=== PATIENT | female | born 1975 | race Caucasian/White ===

== ENCOUNTER → 2019-02-12 | Outpatient (CLI) | payer OTHER | END | disposition home or self-care (01) | LOC: RAD 17:13 | PROVIDERS: ATTEND Physician Assistant | DX: S80.02XA Contusion of left knee, initial encounter (principal); S83.232A Complex tear of medial meniscus, current injury, left knee, initial encounter; M13.162 Monoarthritis, not elsewhere classified, left knee; X58.XXXA Exposure to other specified factors, initial encounter; Y93.89 Activity, other specified; Y92.89 Other specified places as the place of occurrence of the external cause; Y99.8 Other external cause status ==